=== PATIENT | male | born 1995 | race American Indian/Alaskan Native ===

== ENCOUNTER 2017-11-25 16:58 | Emergency (ER) | payer SELFPAY ==
[2017-11-25] MEDS ORDERED: ZOFRAN IV ONE (17:25)
[2017-11-25] MEDS ORDERED: BOOSTRIX IM ONE (17:25)
[2017-11-25] MEDS ORDERED: SUBLIMAZE IV ONE ×3 (17:25→20:10)
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
[2017-11-25] MEDS ORDERED: POLYSPORIN TP ONE (18:00)
[2017-11-25] MEDS ORDERED: NACL 0.9% IR ONE (18:11)
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
[2017-11-25 19:58] VITALS: BP 134/86
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
== END 2017-11-25 20:36 | disposition home or self-care (01) ==
LOC: ED 16:58
DX: S52.512A Displaced fracture of left radial styloid process, initial encounter for closed fracture (principal); S52.514A Nondisplaced fracture of right radial styloid process, initial encounter for closed fracture; S80.212A Abrasion, left knee, initial encounter; S80.211A Abrasion, right knee, initial encounter; S00.81XA Abrasion of other part of head, initial encounter; S09.90XA Unspecified injury of head, initial encounter; I10 Essential (primary) hypertension; F17.200 Nicotine dependence, unspecified, uncomplicated; V29.9XXA Motorcycle rider (driver) (passenger) injured in unspecified traffic accident, initial encounter; Y93.89 Activity, other specified; Y92.89 Other specified places as the place of occurrence of the external cause; Y99.8 Other external cause status
CPT/HCPCS: 29125; 70450; 72125; 73090; 90471; 90715; 96374; 96375; 96376; 99284; J2405; J3010